=== PATIENT | female | born 1955 | race Caucasian/White ===

== ENCOUNTER 2023-09-24 19:20 | Inpatient (IN) | payer MEDICARE ==
[~2023-09-24] VITALS: Ht 175.3 cm; Wt 41.2 kg
[2023-09-24] MEDS: ONDANSETRON 4MG 2ML VIAL IV ONE (19:39)
[2023-09-24] MEDS: MORPHINE 4 MG/ML 1ML VIAL IV ONE (19:43)
[2023-09-24] MEDS: NS 500 ML IV ONE (19:44)
[2023-09-24] MEDS: ACETAMINOPHEN *IV* 500 MG in IV 1 EA IV ONE (19:44)
[2023-09-24 20:00] LABS: BASO % 0.4 % (0.0-1.0); EOS # 0.1 10^3/uL (0.0-0.5); EOS % 1.2 % (0.0-3.0); HEMATOCRIT 36.8 % (36.0-47.0); HEMOGLOBIN 12.1 g/dl (12.0-15.5); LYMPH # 1.3 10^3/uL (1.5-5.0); LYMPH % 11.5 % (24.0-44.0); MEAN CORPUSCULAR HEMOGLOBIN 31.3 pg (27.0-33.0); MEAN CORPUSCULAR HGB CONC 32.9 g/dl (32.0-36.5); MEAN CORPUSCULAR VOLUME 95.3 fl (80.0-96.0); MONO # 0.6 10^3/uL (0.0-0.8); MONO % 5.4 % (2.0-8.0); NEUTROPHILS # 9.1 10^3/uL (1.5-8.5); PLATELET COUNT, AUTOMATED 192 10^3/uL (150-450); RED BLOOD COUNT 3.86 10^6/uL (4.00-5.40); WHITE BLOOD COUNT 11.3 10^3/uL (4.0-10.0)
[2023-09-24 20:22] LABS: BLOOD UREA NITROGEN 17 MG/DL (9-23); CALCIUM LEVEL 8.3 MG/DL (8.3-10.6); CARBON DIOXIDE LEVEL 30 MMOL/L (20-31); CHLORIDE LEVEL 106 MMOL/L (98-107); CREATININE FOR GFR 0.78 MG/DL (0.55-1.30); GLOMERULAR FILTRATION RATE > 60.0 (>45); GLUCOSE, FASTING 123 MG/DL (74-106); MAGNESIUM LEVEL 2.1 MG/DL (1.8-2.4); POTASSIUM SERUM 3.9 MMOL/L (3.5-5.1); SODIUM LEVEL 140 MMOL/L (136-145)
[2023-09-24] MEDS ORDERED: VENTAER INH (21:04)
[2023-09-24] MEDS ORDERED: PARO10TA3 PO (21:04)
[2023-09-24] MEDS: HYDROMORPHONE HCL 0.5 MG/ 0.5 ML SYRINGE IV ONE (21:04)
[2023-09-24] MEDS ORDERED: METH10CO3 PO (21:04)
[2023-09-24] MEDS ORDERED: HOME MED LIST COMPLETE! XX SCH (21:05)
[2023-09-24] MEDS ORDERED: ALBUTEROL SULFATE 2.5MG/0.5ML INH NEB SOLN NEB PRN (23:00)
[2023-09-25] VITALS (11 sets, daily range): BP systolic 84–128; BP diastolic 50–73; TEMP 97.5–98.4; O2SAT 90–99
[2023-09-25] MEDS: NS 500 ML IV ONE (00:02)
[2023-09-25] MEDS: LR 1,000 ML IV SCH ×2 (00:41→18:06)
[2023-09-25] MEDS: HYDROMORPHONE HCL 0.5 MG/ 0.5 ML SYRINGE IV PRN ×2 (01:03→12:39)
[2023-09-25] MEDS: IPRATROPIUM 0.5MG/ALBUTEROL 2.5MG INH SOL UD 3ML (DUONEB) NEB SCH (02:14)
[2023-09-25] MEDS: NICOTINE 7 MG/24 HR TRANSDERMAL TD SCH (05:55)
[2023-09-25] MEDS: HEPARIN SOD (PORCINE) 5000UNITS/ML 1ML VIAL/SYRINGE SC SCH (06:00)
[2023-09-25] MEDS: PARoxetine 10MG TABLET PO SCH (08:46)
[2023-09-25] MEDS ORDERED: MIDAZOLAM INJ 2MG/2ML VIAL As Ordered ONE (09:31)
[2023-09-25] MEDS ORDERED: KETAMINE HCL 200MG/20ML VIAL As Ordered ONE (09:31)
[2023-09-25] MEDS ORDERED: LIDOCAINE 2% 100MG/5ML SDV (FOR ANES.) As Ordered ONE (09:32)
[2023-09-25] MEDS ORDERED: fentaNYL 100 MCG/2 ML INJECTION As Ordered ONE (09:32)
[2023-09-25] MEDS ORDERED: propofoL 200 MG/20 ML VIAL As Ordered ONE (09:32)
[2023-09-25] MEDS ORDERED: ROCURONIUM BROMIDE 50MG/5ML VIAL As Ordered ONE (10:38)
[2023-09-25] MEDS ORDERED: ONDANSETRON 4MG 2ML VIAL As Ordered ONE (10:43)
[2023-09-25] MEDS: TRANEXAMIC ACID 100 MG/ML 10ML VIAL As Ordered ONE (11:15)
[2023-09-25] MEDS: ceFAZolin 2 GM/D5W 50 ML IV BAG As Ordered ONE (11:17)
[2023-09-25] MEDS ORDERED: SUGAMMADEX SODIUM 500 MG/5 ML VIAL (BRIDION) As Ordered ONE (11:20)
[2023-09-25] MEDS ORDERED: ACETAMINOPHEN 1000MG 100ML IV BAG As Ordered ONE (11:21)
[2023-09-25] MEDS ORDERED: dexmedeTOMIDine (4MCG/ML)200MCG/50ML BTL (PRECEDEX) As Ordered ONE (11:34)
[2023-09-25] MEDS ORDERED: KETOROLAC 60MG 2ML VIAL As Ordered ONE (11:41)
[2023-09-25] MEDS ORDERED: ONDANSETRON 4MG 2ML VIAL IV PRN (12:30)
[2023-09-25] MEDS: METHADONE 10MG TAB PO SCH (13:18)
[2023-09-25] MEDS: ceFAZolin SOD 2 GM in IV 1 EA IV SCH (18:05)
[2023-09-26 06:20] VITALS: BP 109/66; TEMP 97.9; O2SAT 93
[2023-09-26] MEDS: PREVNAR-20 VACCINE 0.5ML SYRINGE IM.IMMUN ONE (09:00)
[2023-09-26] MEDS: FLUZONE HIGH DOSE(65YR UP)QUAD/PF 240MCG/0.7ML SYRINGE IM.IMMUN ONE (09:00)
[2023-09-26 10:43] VITALS: BP 125/73; TEMP 99; O2SAT 94
[2023-09-26] MEDS: PERCOCET 5MG/325MG TAB PO PRN (12:01)
[2023-09-26 13:45] VITALS: BP 127/70; TEMP 98.1; O2SAT 93
[2023-09-26 20:18] VITALS: BP 103/61; TEMP 97.2; O2SAT 91
[2023-09-26] MEDS: NICOTINE 21MG/24HR 1 EA TRANSDERMAL TD SCH (23:20)
[2023-09-27 02:11] VITALS: BP 110/63; TEMP 97; O2SAT 96
[2023-09-27 05:13] VITALS: BP 114/63; TEMP 98.4; O2SAT 94
[2023-09-27] MEDS: ONDANSETRON 4MG 2ML VIAL IV PRN (07:35)
[2023-09-27 11:14] LABS: HEMATOCRIT 33.3 % (36.0-47.0); HEMOGLOBIN 10.8 g/dl (12.0-15.5); MEAN CORPUSCULAR HEMOGLOBIN 31.3 pg (27.0-33.0); MEAN CORPUSCULAR HGB CONC 32.4 g/dl (32.0-36.5); MEAN CORPUSCULAR VOLUME 96.5 fl (80.0-96.0); PLATELET COUNT, AUTOMATED 171 10^3/uL (150-450); RED BLOOD COUNT 3.45 10^6/uL (4.00-5.40); WHITE BLOOD COUNT 7.4 10^3/uL (4.0-10.0)
[2023-09-27 11:47] LABS: BLOOD UREA NITROGEN 14 MG/DL (9-23); CALCIUM LEVEL 8.1 MG/DL (8.3-10.6); CARBON DIOXIDE LEVEL 34 MMOL/L (20-31); CHLORIDE LEVEL 100 MMOL/L (98-107); CREATININE FOR GFR 0.64 MG/DL (0.55-1.30); GLOMERULAR FILTRATION RATE > 60.0 (>45); GLUCOSE, FASTING 100 MG/DL (74-106); POTASSIUM SERUM 4.2 MMOL/L (3.5-5.1); SODIUM LEVEL 135 MMOL/L (136-145)
[2023-09-27 14:00] VITALS: BP 89/52; TEMP 97.9; O2SAT 92
[2023-09-27 14:48] VITALS: BP 98/58
[2023-09-27 19:38] VITALS: BP 88/53; TEMP 97.2; O2SAT 93
[2023-09-27 20:30] VITALS: BP 94/55
[2023-09-28 05:10] VITALS: BP 104/65; TEMP 98.4; O2SAT 93
[2023-09-28] MEDS: oxyCODONE 5MG TAB PO ONE (06:31)
[2023-09-28 07:30] VITALS: BP 112/62; TEMP 98.8; O2SAT 94
[2023-09-28] MEDS ORDERED: NICO21PAT TD (08:14)
== END 2023-09-28 09:10 | DRG 481 ==
LOC: EDBD 19:20 → M ED 19:20 → M ED INP 22:59 → ENRESERVTM 23:16 → ENRESERVDT 23:16 → M MS5PR 09-25 00:20
PROVIDERS: ADMIT Internal Medicine; ATTEND Internal Medicine
PROC: 0QS706Z Reposition Left Upper Femur with Intramedullary Internal Fixation Device, Open Approach (ICD-10-PCS; principal; 2023-09-25 10:00)
DX: S72.142A Displaced intertrochanteric fracture of left femur, initial encounter for closed fracture (principal); R64 Cachexia; J96.11 Chronic respiratory failure with hypoxia; F11.20 Opioid dependence, uncomplicated; J45.909 Unspecified asthma, uncomplicated; F17.210 Nicotine dependence, cigarettes, uncomplicated; Z99.81 Dependence on supplemental oxygen; W18.09XA Striking against other object with subsequent fall, initial encounter; Y92.009 Unspecified place in unspecified non-institutional (private) residence as the place of occurrence of the external cause; Y93.9 Activity, unspecified; Y99.8 Other external cause status; X58.XXXA Exposure to other specified factors, initial encounter; R91.8 Other nonspecific abnormal finding of lung field; Z66 Do not resuscitate; M81.0 Age-related osteoporosis without current pathological fracture; J44.9 Chronic obstructive pulmonary disease, unspecified

== ENCOUNTER 2023-09-28 07:57 | Inpatient (IN) | payer MEDICARE ==
[~2023-09-28] VITALS: Ht 175.3 cm; Wt 45.3 kg
[~2023-09-28 07:57] MED LIST: METH10CO3 PO; PARO10TA3 PO; VENTAER INH
[2023-09-28] MEDS ORDERED: ALBUTEROL 90 MCG/ACT 8GM HFA INHALER INH PRN (08:10)
[2023-09-28] MEDS ORDERED: NICO21PAT TD (08:14)
[2023-09-28 09:34] VITALS: BP 107/55; TEMP 98.5; O2SAT 97
[2023-09-28 10:38] LABS: BLOOD UREA NITROGEN 21 MG/DL (9-23); CARBON DIOXIDE LEVEL 32 MMOL/L (20-31); CHLORIDE LEVEL 107 MMOL/L (98-107); GLOMERULAR FILTRATION RATE > 60.0 (>45); GLUCOSE, FASTING 102 MG/DL (74-106); POTASSIUM SERUM 4.3 MMOL/L (3.5-5.1); SODIUM LEVEL 136 MMOL/L (136-145)
[2023-09-28] MEDS ORDERED: BISACODYL 10MG SUPP PR PRN (10:45)
[2023-09-28] MEDS: MIRALAX *UNIT DOSE* 17GM PACKET PO SCH (11:10)
[2023-09-28] MEDS: ACETAMINOPHEN 500 MG TAB PO SCH (11:10)
[2023-09-28] MEDS: HEPARIN SOD (PORCINE) 5000UNITS/ML 1ML VIAL/SYRINGE SQ SCH (14:00)
[2023-09-28 14:15] VITALS: BP 90/60; TEMP 97.8; O2SAT 93
[2023-09-28] MEDS: LIDOCAINE 5% (LIDODERM) PATCH TD SCH (14:53)
[2023-09-28] MEDS: ENOXAPARIN 30MG/0.3ML SYRINGE (J1650 PER 10MG) SC SCH (14:54)
[2023-09-28 15:17] LABS: TOTAL 25(OH) VITAMIN D 27.8 NG/ML (20.0-100.0)
[2023-09-28] MEDS: GABAPENTIN 100 MG CAP PO SCH (16:27)
[2023-09-28] MEDS: VANICREAM MOISTURIZING SKIN CREAM 113GM TUBE TOP SCH (16:28)
[2023-09-28] MEDS: TIOTROPIUM INHALER/CAPSULE (SPIRIVA) INH SCH (17:03)
[2023-09-28 20:00] VITALS: BP 86/49; TEMP 99.1; O2SAT 92
[2023-09-28] MEDS: RAMELTEON 8 MG TAB (ROZEREM) PO SCH (20:51)
[2023-09-28] MEDS: oxyCODONE 5MG TAB PO PRN (20:51)
[2023-09-28] MEDS: FORMOTEROL FUMARATE 20 MCG/2 ML INHALATION SOLUTION (PERFOROMIST) INH SCH (20:54)
[2023-09-29 06:00] VITALS: BP 88/54; TEMP 99; O2SAT 92
[2023-09-29 06:21] LABS: BASO % 0.3 % (0.0-1.0); EOS % 0.4 % (0.0-3.0); HEMATOCRIT 26.3 % (36.0-47.0); LYMPH # 0.9 10^3/uL (1.5-5.0); MEAN CORPUSCULAR HEMOGLOBIN 31.5 pg (27.0-33.0); MEAN CORPUSCULAR HGB CONC 32.7 g/dl (32.0-36.5); MEAN CORPUSCULAR VOLUME 96.3 fl (80.0-96.0); MONO # 0.7 10^3/uL (0.0-0.8); MONO % 8.5 % (2.0-8.0); NEUTROPHILS # 6.2 10^3/uL (1.5-8.5); NEUTROPHILS % 79.4 % (36.0-66.0); PLATELET COUNT, AUTOMATED 160 10^3/uL (150-450); RED BLOOD COUNT 2.73 10^6/uL (4.00-5.40); WHITE BLOOD COUNT 7.8 10^3/uL (4.0-10.0)
[2023-09-29 06:22] LABS: HEMOGLOBIN 8.6 g/dl (12.0-15.5)
[2023-09-29 06:46] LABS: BLOOD UREA NITROGEN 23 MG/DL (9-23); CALCIUM LEVEL 7.9 MG/DL (8.3-10.6); CARBON DIOXIDE LEVEL 32 MMOL/L (20-31); CHLORIDE LEVEL 107 MMOL/L (98-107); CREATININE FOR GFR 0.61 MG/DL (0.55-1.30); GLOMERULAR FILTRATION RATE > 60.0 (>45); GLUCOSE, FASTING 105 MG/DL (74-106); POTASSIUM SERUM 4.4 MMOL/L (3.5-5.1); SODIUM LEVEL 139 MMOL/L (136-145)
[2023-09-29] MEDS: NICOTINE 21MG/24HR 1 EA TRANSDERMAL TD SCH (07:16)
[2023-09-29] MEDS: METHADONE 10MG TAB PO SCH (07:17)
[2023-09-29] MEDS: PARoxetine 10MG TABLET PO SCH (07:17)
[2023-09-29 14:00] VITALS: BP 95/54; TEMP 99.9; O2SAT 88
[2023-09-29] MEDS: methocarbamoL 500 MG TAB PO PRN (17:06)
[2023-09-29] MEDS: CALCIUM CARBONATE 500 MG CHEW U/D PO SCH (17:06)
[2023-09-29 20:00] VITALS: BP 84/45; TEMP 97.1; O2SAT 95
[2023-09-29 20:02] VITALS: O2SAT 93
[2023-09-30 06:00] VITALS: BP 87/49; TEMP 98.2; O2SAT 97
[2023-09-30] MEDS: VITAMIN D 1,000 INTERNATIONAL UNITS TABLET PO SCH (08:19)
[2023-09-30] MEDS: RIVAROXABAN 10MG TAB (XARELTO) PO SCH (08:19)
[2023-09-30 09:30] VITALS: BP 99/55; O2SAT 90
[2023-09-30] MEDS: LR 1,000 ML IV ONE (10:49)
[2023-09-30 11:22] LABS: BASO % 0.3 % (0.0-1.0); EOS # 0.1 10^3/uL (0.0-0.5); EOS % 1.1 % (0.0-3.0); HEMATOCRIT 25.3 % (36.0-47.0); HEMOGLOBIN 8.3 g/dl (12.0-15.5); LYMPH % 16.1 % (24.0-44.0); MEAN CORPUSCULAR HEMOGLOBIN 31.4 pg (27.0-33.0); MEAN CORPUSCULAR HGB CONC 32.8 g/dl (32.0-36.5); MEAN CORPUSCULAR VOLUME 95.8 fl (80.0-96.0); MONO # 0.6 10^3/uL (0.0-0.8); MONO % 9.3 % (2.0-8.0); NEUTROPHILS # 4.6 10^3/uL (1.5-8.5); PLATELET COUNT, AUTOMATED 154 10^3/uL (150-450); RED BLOOD COUNT 2.64 10^6/uL (4.00-5.40); WHITE BLOOD COUNT 6.3 10^3/uL (4.0-10.0)
[2023-09-30 11:51] LABS: BLOOD UREA NITROGEN 23 MG/DL (9-23); CALCIUM LEVEL 7.8 MG/DL (8.3-10.6); CARBON DIOXIDE LEVEL 34 MMOL/L (20-31); CHLORIDE LEVEL 107 MMOL/L (98-107); CREATININE FOR GFR 0.59 MG/DL (0.55-1.30); GLOMERULAR FILTRATION RATE > 60.0 (>45); GLUCOSE, FASTING 105 MG/DL (74-106); MAGNESIUM LEVEL 1.7 MG/DL (1.8-2.4); POTASSIUM SERUM 4.1 MMOL/L (3.5-5.1); SODIUM LEVEL 142 MMOL/L (136-145)
[2023-09-30] MEDS ORDERED: ISOVUE-370 76% 100ML VIAL As Ordered ONE (12:26)
[2023-09-30 13:30] VITALS: BP 105/55; TEMP 97.6; O2SAT 92
[2023-09-30 13:45] VITALS: BP 87/53; TEMP 97.9; O2SAT 95
[2023-09-30 14:45] VITALS: BP 95/53; TEMP 97.6; O2SAT 97
[2023-09-30] MEDS: PREVNAR-20 VACCINE 0.5ML SYRINGE IM.IMMUN ONE (15:08)
[2023-09-30] MEDS: FLUZONE HIGH DOSE(65YR UP)QUAD/PF 240MCG/0.7ML SYRINGE IM.IMMUN ONE (15:09)
[2023-09-30 20:00] VITALS: BP 98/50; TEMP 98.2; O2SAT 93
[2023-10-01 06:00] VITALS: BP 94/52; TEMP 98.6; O2SAT 96
[2023-10-01 07:48] LABS: HEMATOCRIT 31.6 % (36.0-47.0); MEAN CORPUSCULAR HEMOGLOBIN 31.4 pg (27.0-33.0); MEAN CORPUSCULAR HGB CONC 32.9 g/dl (32.0-36.5); MEAN CORPUSCULAR VOLUME 95.5 fl (80.0-96.0); PLATELET COUNT, AUTOMATED 213 10^3/uL (150-450); RED BLOOD COUNT 3.31 10^6/uL (4.00-5.40); WHITE BLOOD COUNT 7.3 10^3/uL (4.0-10.0)
[2023-10-01 07:51] LABS: HEMOGLOBIN 10.4 g/dl (12.0-15.5)
[2023-10-01 08:13] LABS: BLOOD UREA NITROGEN 23 MG/DL (9-23); CALCIUM LEVEL 8.4 MG/DL (8.3-10.6); CARBON DIOXIDE LEVEL 31 MMOL/L (20-31); CHLORIDE LEVEL 107 MMOL/L (98-107); CREATININE FOR GFR 0.53 MG/DL (0.55-1.30); GLOMERULAR FILTRATION RATE > 60.0 (>45); GLUCOSE, FASTING 73 MG/DL (74-106); MAGNESIUM LEVEL 1.9 MG/DL (1.8-2.4); POTASSIUM SERUM 4.5 MMOL/L (3.5-5.1); SODIUM LEVEL 140 MMOL/L (136-145)
[2023-10-01 14:00] VITALS: BP 90/54; TEMP 97.2; O2SAT 92
[2023-10-01] MEDS: MIDODRINE 5 MG TAB PO SCH (15:08)
[2023-10-01] MEDS: GABAPENTIN 300 MG CAP PO SCH (19:49)
[2023-10-01 20:00] VITALS: BP 103/57; TEMP 97.8; O2SAT 96
[2023-10-02 06:00] VITALS: BP 85/51; TEMP 97.2; O2SAT 97
[2023-10-02 14:00] VITALS: BP 99/51; TEMP 97; O2SAT 97
[2023-10-02 20:00] VITALS: BP 104/52; TEMP 97.9; O2SAT 97
[2023-10-03 06:00] VITALS: BP 96/51; TEMP 98.1; O2SAT 96
[2023-10-03 14:00] VITALS: BP 91/54; TEMP 96.8; O2SAT 92
[2023-10-03 20:00] VITALS: BP 97/56; TEMP 98.1; O2SAT 94
[2023-10-04 06:00] VITALS: BP 102/52; TEMP 97.5; O2SAT 98
[2023-10-04 06:57] LABS: HEMATOCRIT 29.9 % (36.0-47.0); HEMOGLOBIN 9.6 g/dl (12.0-15.5); MEAN CORPUSCULAR HEMOGLOBIN 30.7 pg (27.0-33.0); MEAN CORPUSCULAR HGB CONC 32.1 g/dl (32.0-36.5); MEAN CORPUSCULAR VOLUME 95.5 fl (80.0-96.0); PLATELET COUNT, AUTOMATED 262 10^3/uL (150-450); RED BLOOD COUNT 3.13 10^6/uL (4.00-5.40); WHITE BLOOD COUNT 4.5 10^3/uL (4.0-10.0)
[2023-10-04 14:00] VITALS: BP 89/51; TEMP 98.2; O2SAT 98
[2023-10-04 20:00] VITALS: BP 91/52; TEMP 97.6; O2SAT 96
[2023-10-05 06:00] VITALS: BP 96/52; TEMP 98.2; O2SAT 96
[2023-10-05 13:45] VITALS: BP 88/50; TEMP 97.9; O2SAT 94
[2023-10-05] MEDS: GABAPENTIN 400MG CAP PO SCH (16:01)
[2023-10-05 20:00] VITALS: BP 91/52; TEMP 98.1; O2SAT 94
[2023-10-06 06:48] VITALS: BP 91/53; TEMP 97.8; O2SAT 94
[2023-10-06 07:08] LABS: BLOOD UREA NITROGEN 26 MG/DL (9-23); CALCIUM LEVEL 7.6 MG/DL (8.3-10.6); CARBON DIOXIDE LEVEL 31 MMOL/L (20-31); CHLORIDE LEVEL 106 MMOL/L (98-107); CREATININE FOR GFR 0.51 MG/DL (0.55-1.30); GLOMERULAR FILTRATION RATE > 60.0 (>45); GLUCOSE, FASTING 76 MG/DL (74-106); POTASSIUM SERUM 4.5 MMOL/L (3.5-5.1); SODIUM LEVEL 139 MMOL/L (136-145)
[2023-10-06 09:03] VITALS: O2SAT 90
[2023-10-06] MEDS: methocarbamoL 500 MG TAB PO SCH (10:21)
[2023-10-06 14:00] VITALS: BP 105/57; TEMP 97; O2SAT 90
[2023-10-06 20:08] VITALS: BP 96/50; TEMP 98.4; O2SAT 90
[2023-10-06] MEDS: MIRTAZAPINE 7.5MG PER 1/2 TABLET PO SCH (20:52)
[2023-10-07 06:00] VITALS: BP 98/56; TEMP 98.2; O2SAT 91
[2023-10-07 06:54] LABS: HEMATOCRIT 28.9 % (36.0-47.0); HEMOGLOBIN 9.3 g/dl (12.0-15.5); MEAN CORPUSCULAR HEMOGLOBIN 30.5 pg (27.0-33.0); MEAN CORPUSCULAR HGB CONC 32.2 g/dl (32.0-36.5); MEAN CORPUSCULAR VOLUME 94.8 fl (80.0-96.0); PLATELET COUNT, AUTOMATED 268 10^3/uL (150-450); RED BLOOD COUNT 3.05 10^6/uL (4.00-5.40); WHITE BLOOD COUNT 5.7 10^3/uL (4.0-10.0)
[2023-10-07] MEDS: methocarbamoL 500 MG TAB PO SCH (09:44)
[2023-10-07] MEDS: MIDODRINE 5 MG TAB PO SCH (09:44)
[2023-10-07] MEDS: oxyCODONE 5MG TAB PO PRN (09:46)
[2023-10-07 14:00] VITALS: BP 82/45; TEMP 98; O2SAT 92
[2023-10-07 17:08] VITALS: BP 91/53; O2SAT 88
[2023-10-07] MEDS: NICOTINE 14 MG/24 HR TRANSDERMAL TD SCH (17:30)
[2023-10-07 19:45] VITALS: BP 112/52; TEMP 97.5; O2SAT 92
[2023-10-08 06:00] VITALS: BP 92/51; TEMP 98; O2SAT 94
[2023-10-08 09:03] LABS: HEMATOCRIT 30.5 % (36.0-47.0); HEMOGLOBIN 9.8 g/dl (12.0-15.5); MEAN CORPUSCULAR HEMOGLOBIN 30.4 pg (27.0-33.0); MEAN CORPUSCULAR HGB CONC 32.1 g/dl (32.0-36.5); MEAN CORPUSCULAR VOLUME 94.7 fl (80.0-96.0); PLATELET COUNT, AUTOMATED 304 10^3/uL (150-450); RED BLOOD COUNT 3.22 10^6/uL (4.00-5.40); WHITE BLOOD COUNT 6.4 10^3/uL (4.0-10.0)
[2023-10-08 14:00] VITALS: BP 94/53; TEMP 97.7; O2SAT 95
[2023-10-08 20:00] VITALS: BP 95/52; TEMP 98.3; O2SAT 91
[2023-10-09 06:00] VITALS: BP 88/50; TEMP 98; O2SAT 96
[2023-10-09 14:00] VITALS: BP 93/44; TEMP 98; O2SAT 93
[2023-10-09 20:00] VITALS: BP 88/53; TEMP 98.1; O2SAT 90
[2023-10-10 06:00] VITALS: BP 97/50; TEMP 97.6; O2SAT 89
[2023-10-10 06:19] LABS: HEMATOCRIT 28.8 % (36.0-47.0); HEMOGLOBIN 9.1 g/dl (12.0-15.5); MEAN CORPUSCULAR HEMOGLOBIN 29.7 pg (27.0-33.0); MEAN CORPUSCULAR HGB CONC 31.6 g/dl (32.0-36.5); MEAN CORPUSCULAR VOLUME 94.1 fl (80.0-96.0); PLATELET COUNT, AUTOMATED 291 10^3/uL (150-450); RED BLOOD COUNT 3.06 10^6/uL (4.00-5.40); WHITE BLOOD COUNT 5.5 10^3/uL (4.0-10.0)
[2023-10-10 14:00] VITALS: BP 108/57; TEMP 97; O2SAT 92
[2023-10-10 20:00] VITALS: BP 106/52; TEMP 97.2; O2SAT 92
[2023-10-11 06:08] VITALS: BP 100/55; TEMP 97.3; O2SAT 91
[2023-10-11] MEDS ORDERED: MIRT-10 PO (11:38)
[2023-10-11] MEDS ORDERED: CALC200T15 PO (11:38)
[2023-10-11] MEDS ORDERED: OXYC-517 PO (11:38)
[2023-10-11] MEDS ORDERED: VITAD1000T PO (11:38)
[2023-10-11] MEDS ORDERED: MIDO5TA PO (11:38)
[2023-10-11] MEDS ORDERED: GABA-284 PO (11:38)
[2023-10-11] MEDS ORDERED: METH-1164 PO (11:38)
[2023-10-11] MEDS ORDERED: ANOR1AER PO (11:38)
== END 2023-10-11 13:15 | disposition home health service (06) | DRG 560 ==
LOC: M PM&R 09:15
PROVIDERS: ADMIT Student in an Organized Health Care Education/Training Program; ATTEND Student in an Organized Health Care Education/Training Program
PROC: 30233N1 Transfusion of Nonautologous Red Blood Cells into Peripheral Vein, Percutaneous Approach (ICD-10-PCS; principal; 2023-09-30)
DX: S72.142D Displaced intertrochanteric fracture of left femur, subsequent encounter for closed fracture with routine healing (principal); J96.11 Chronic respiratory failure with hypoxia; F11.20 Opioid dependence, uncomplicated; R64 Cachexia; E87.1 Hypo-osmolality and hyponatremia; D62 Acute posthemorrhagic anemia; M81.0 Age-related osteoporosis without current pathological fracture; G89.18 Other acute postprocedural pain; F39 Unspecified mood [affective] disorder; J44.9 Chronic obstructive pulmonary disease, unspecified; M41.9 Scoliosis, unspecified; R00.0 Tachycardia, unspecified; M62.838 Other muscle spasm; E55.9 Vitamin D deficiency, unspecified; L93.0 Discoid lupus erythematosus; F41.9 Anxiety disorder, unspecified; F17.200 Nicotine dependence, unspecified, uncomplicated; I95.9 Hypotension, unspecified; Z66 Do not resuscitate; G47.9 Sleep disorder, unspecified; Z74.09 Other reduced mobility; Z74.1 Need for assistance with personal care; Z99.81 Dependence on supplemental oxygen; Z79.899 Other long term (current) drug therapy; Z86.16 Personal history of COVID-19

== ENCOUNTER → 2023-11-03 | Outpatient (CLI) | payer MEDICARE ==
[~2023-11-03] MED LIST changes: +ANOR1AER PO; +CALC200T15 PO; +GABA-284 PO; +METH-1164 PO; +MIDO5TA PO; +MIRT-10 PO; +NICO21PAT TD; +OXYC-517 PO; +VITAD1000T PO
== END ==
LOC: M SOG 07:55
PROVIDERS: ATTEND Physician Assistant
DX: S72.142A Displaced intertrochanteric fracture of left femur, initial encounter for closed fracture (principal); W18.30XA Fall on same level, unspecified, initial encounter; Y92.009 Unspecified place in unspecified non-institutional (private) residence as the place of occurrence of the external cause

== ENCOUNTER → 2023-11-10 | Outpatient (CLI) | payer MEDICARE | LOC: M SOG 11:11 | PROVIDERS: ATTEND Physician Assistant | DX: S72.142A Displaced intertrochanteric fracture of left femur, initial encounter for closed fracture (principal); W18.30XA Fall on same level, unspecified, initial encounter; Y92.009 Unspecified place in unspecified non-institutional (private) residence as the place of occurrence of the external cause ==

== ENCOUNTER 2024-11-09 02:33 | Observation (INO) | payer MEDICARE ==
[~2024-11-09] VITALS: Ht 175.3 cm; Wt 45.2 kg
[2024-11-09] MEDS: ACETAMINOPHEN *IV* 1,000 MG in IV 1 EA IV ONE (05:30)
[2024-11-09 06:08] LABS: HEMATOCRIT 32.6 % (36.0-47.0); HEMOGLOBIN 10.4 g/dl (12.0-15.5); MEAN CORPUSCULAR HEMOGLOBIN 30.3 pg (27.0-33.0); MEAN CORPUSCULAR HGB CONC 31.9 g/dl (32.0-36.5); PLATELET COUNT, AUTOMATED 116 10^3/uL (150-450); RED BLOOD COUNT 3.43 10^6/uL (4.00-5.40); WHITE BLOOD COUNT 9.9 10^3/uL (4.0-10.0)
[2024-11-09 06:53] LABS: CALCIUM LEVEL 7.9 MG/DL (8.3-10.6); CREATININE FOR GFR 0.78 MG/DL (0.55-1.30); GLOMERULAR FILTRATION RATE 82.7 (>45); MAGNESIUM LEVEL 1.9 MG/DL (1.8-2.4); THYROID STIMULATING HORMONE 0.309 uIU/ML (0.55-4.78)
[2024-11-09 07:31] LABS: ATYPICAL LYMPH 1 % (0-5); BASOPHILS 1 % (0-1); LYMPHOCYTES 14 % (16-44); MONOCYTES 4 % (0-5); NEUTROPHILS 78 % (28-66)
[2024-11-09 07:32] LABS: PLATELET ESTIMATE DECREASED (NORMAL)
[2024-11-09] MEDS: NS (Normal Saline) 0.9% 1,000 ML IV ONE (07:40)
[2024-11-09] MEDS: TIOTROPIUM BROM 2.5MCG/ACTUATION 4GM INH IH SCH (08:00)
[2024-11-09 08:22] LABS: ALBUMIN 3.3 G/DL (3.2-5.2); BILIRUBIN,DIRECT 0.1 MG/DL (<0.4); BILIRUBIN,TOTAL 0.4 MG/DL (0.3-1.2); TOTAL PROTEIN 6.5 G/DL (5.7-8.2)
[2024-11-09] MEDS ORDERED: CHOL100013 PO (12:16)
[2024-11-09] MEDS ORDERED: HOME MED LIST COMPLETE! XX SCH (12:20)
[2024-11-09] MEDS: MIDODRINE 5 MG TAB PO SCH (12:54)
[2024-11-09] MEDS: ACETAMINOPHEN 500 MG TAB PO SCH (12:54)
[2024-11-09 13:30] LABS: PERCENT SATURATION 8.3 % (13.2-45.0)
[2024-11-09 13:32] LABS: FERRITIN 294.8 NG/ML (7.3-270.7); FOLATE 19.44 NG/ML (>5.4)
[2024-11-09 14:30] VITALS: BP 92/54; TEMP 98.2; O2SAT 94
[2024-11-09] MEDS: METHADONE 10MG TAB PO SCH (15:11)
[2024-11-09] MEDS: ENOXAPARIN 30MG/0.3ML SYRINGE (J1650 PER 10MG) SC SCH (15:13)
[2024-11-09 16:00] VITALS: BP 105/55; TEMP 97.9; O2SAT 97
[2024-11-09] MEDS: FERRIC CARBOXYMALTOSE INJ 750 MG, VIAL MATE ADAPTER 1 EACH in NS 100 ML IV ONE (17:04)
[2024-11-09] MEDS ORDERED: KETOROLAC 30 MG/ML 1ML VIAL IV PRN (19:50)
[2024-11-09] MEDS: SYMBICORT 160/4.5MCG INHALER 6GM INH SCH (19:53)
[2024-11-09 20:05] VITALS: BP 84/44; TEMP 97.2; O2SAT 94
[2024-11-09] MEDS: ACETAMINOPHEN *IV* 500 MG in IV 1 EA IV ONE (20:36)
[2024-11-09] MEDS: METHOCARBAMOL 1,000 MG/10 ML VIAL IV ONE (20:37)
[2024-11-09] MEDS: LIDOCAINE 5% (LIDODERM) PATCH TD SCH (21:00)
[2024-11-09 23:31] VITALS: BP 84/62
[2024-11-09 23:59] VITALS: BP 82/60; TEMP 96.8; O2SAT 94
[2024-11-10] VITALS (7 sets, daily range): BP systolic 84–136; BP diastolic 46–67; TEMP 97.2–98.4; O2SAT 89–95
[2024-11-10] MEDS: methocarbamoL 750 MG TAB PO PRN (04:16)
[2024-11-10] MEDS: KETOROLAC 30 MG/ML 1ML VIAL IV PRN (04:17)
[2024-11-10 06:34] LABS: BASO % 0.5 % (0.0-1.0); EOS # 0.1 10^3/uL (0.0-0.5); EOS % 2.3 % (0.0-3.0); HEMATOCRIT 27.8 % (36.0-47.0); HEMOGLOBIN 8.9 g/dl (12.0-15.5); LYMPH # 1.1 10^3/uL (1.5-5.0); LYMPH % 19.6 % (24.0-44.0); MEAN CORPUSCULAR HEMOGLOBIN 31.1 pg (27.0-33.0); MEAN CORPUSCULAR VOLUME 97.2 fl (80.0-96.0); MONO # 0.6 10^3/uL (0.0-0.8); MONO % 10.4 % (2.0-8.0); NEUTROPHILS # 3.7 10^3/uL (1.5-8.5); RED BLOOD COUNT 2.86 10^6/uL (4.00-5.40); WHITE BLOOD COUNT 5.6 10^3/uL (4.0-10.0)
[2024-11-10 06:58] LABS: CALCIUM LEVEL 8.1 MG/DL (8.3-10.6); CREATININE FOR GFR 0.74 MG/DL (0.55-1.30); GLOMERULAR FILTRATION RATE 88.1 (>45); MAGNESIUM LEVEL 1.9 MG/DL (1.8-2.4); POTASSIUM SERUM 4.5 MMOL/L (3.5-5.1)
[2024-11-10 07:54] LABS: PLATELET COUNT, AUTOMATED 93 10^3/uL (150-450)
[2024-11-10] MEDS: DOCUSATE SODIUM 100MG CAPSULE PO SCH (09:00)
[2024-11-10] MEDS ORDERED: ENOXAPARIN 40MG/0.4ML SYRINGE (J1650 PER 10MG) SC SCH (09:00)
[2024-11-10] MEDS: methocarbamoL 750 MG TAB PO SCH (10:34)
[2024-11-10] MEDS ORDERED: IPRATROPIUM 0.5MG/ALBUTEROL 2.5MG INH SOL UD 3ML NEB PRN (13:10)
[2024-11-11] VITALS: BP 123/64; TEMP 97.5; O2SAT 91
[2024-11-11 04:00] VITALS: BP 127/60; TEMP 97.2; O2SAT 93
[2024-11-11 07:23] LABS: BASO % 0.3 % (0.0-1.0); EOS # 0.1 10^3/uL (0.0-0.5); HEMATOCRIT 26.3 % (36.0-47.0); HEMOGLOBIN 8.3 g/dl (12.0-15.5); LYMPH # 0.8 10^3/uL (1.5-5.0); LYMPH % 12.8 % (24.0-44.0); MEAN CORPUSCULAR HEMOGLOBIN 30.3 pg (27.0-33.0); MEAN CORPUSCULAR HGB CONC 31.6 g/dl (32.0-36.5); MONO # 0.6 10^3/uL (0.0-0.8); MONO % 8.8 % (2.0-8.0); NEUTROPHILS # 4.8 10^3/uL (1.5-8.5); NEUTROPHILS % 75.8 % (36.0-66.0); RED BLOOD COUNT 2.74 10^6/uL (4.00-5.40); WHITE BLOOD COUNT 6.4 10^3/uL (4.0-10.0)
[2024-11-11 07:26] LABS: PLATELET COUNT, AUTOMATED 99 10^3/uL (150-450)
[2024-11-11] MEDS: ONDANSETRON 4MG ORAL DISINTEGRATING TAB PO PRN (15:31)
[2024-11-11 19:12] VITALS: O2SAT 94
[2024-11-12 04:08] VITALS: BP 148/77; TEMP 98.4; O2SAT 94
[2024-11-12] MEDS: KETOROLAC 30 MG/ML 1ML VIAL IV ONE (10:54)
[2024-11-12] MEDS: methocarbamoL 750 MG TAB PO PRN (21:30)
[2024-11-13 04:51] VITALS: BP 140/75; TEMP 97.9; O2SAT 91
[2024-11-13 07:00] VITALS: O2SAT 96
[2024-11-13 08:24] VITALS: BP 137/76
[2024-11-13 13:39] LABS: HEMATOCRIT 30.7 % (36.0-47.0); HEMOGLOBIN 9.7 g/dl (12.0-15.5); MEAN CORPUSCULAR HEMOGLOBIN 30.7 pg (27.0-33.0); MEAN CORPUSCULAR HGB CONC 31.6 g/dl (32.0-36.5); MEAN CORPUSCULAR VOLUME 97.2 fl (80.0-96.0); PLATELET COUNT, AUTOMATED 162 10^3/uL (150-450); RED BLOOD COUNT 3.16 10^6/uL (4.00-5.40); WHITE BLOOD COUNT 9.2 10^3/uL (4.0-10.0)
[2024-11-13] MEDS: METOPROLOL SUCC *XL* 25MG TAB (TopROL *XL*) PO SCH (13:43)
[2024-11-13 14:41] LABS: LYMPHOCYTES 16 % (16-44); MONOCYTES 4 % (0-5); NEUTROPHILS 78 % (28-66); PLATELET ESTIMATE NORMAL (NORMAL)
[2024-11-13] MEDS: MIDODRINE 5 MG TAB PO SCH (16:00)
[2024-11-13 17:20] VITALS: BP 129/74
[2024-11-13 20:21] VITALS: BP 104/58; TEMP 98.8; O2SAT 91
[2024-11-13] MEDS: APIXABAN 5 MG TAB (ELIQUIS) PO SCH (20:36)
[2024-11-13] MEDS: RAMELTEON 8 MG TAB (ROZEREM) PO PRN (22:54)
[2024-11-14 00:03] VITALS: BP 129/76; TEMP 97.3; O2SAT 99
[2024-11-14 04:58] VITALS: BP 113/68; TEMP 97.7; O2SAT 99
[2024-11-14 08:25] VITALS: BP 95/56
[2024-11-14 11:49] VITALS: BP 96/57
[2024-11-14 16:00] VITALS: BP 113/71
[2024-11-14 20:15] VITALS: BP 128/77; TEMP 97.6; O2SAT 94
[2024-11-15 00:30] VITALS: BP_SYST 147; BP_SYST 164; BP_DIAS 83; BP_DIAS 86; TEMP 98.8; O2SAT 94
[2024-11-15 04:30] VITALS: BP 119/64; TEMP 98.8; O2SAT 90
[2024-11-15 07:10] VITALS: O2SAT 92
[2024-11-16 04:00] VITALS: BP 126/86; TEMP 97.9; O2SAT 93
[2024-11-16 06:17] LABS: HEMATOCRIT 26.5 % (36.0-47.0); HEMOGLOBIN 8.4 g/dl (12.0-15.5); MEAN CORPUSCULAR HEMOGLOBIN 30.8 pg (27.0-33.0); MEAN CORPUSCULAR HGB CONC 31.7 g/dl (32.0-36.5); MEAN CORPUSCULAR VOLUME 97.1 fl (80.0-96.0); PLATELET COUNT, AUTOMATED 198 10^3/uL (150-450); RED BLOOD COUNT 2.73 10^6/uL (4.00-5.40); WHITE BLOOD COUNT 4.8 10^3/uL (4.0-10.0)
[2024-11-16 06:38] LABS: BLOOD UREA NITROGEN 26 MG/DL (9-23); CALCIUM LEVEL 7.8 MG/DL (8.3-10.6); CARBON DIOXIDE LEVEL 29 MMOL/L (20-31); CHLORIDE LEVEL 105 MMOL/L (98-107); CREATININE FOR GFR 0.58 MG/DL (0.55-1.30); GLOMERULAR FILTRATION RATE > 90.0 (>45); GLUCOSE, FASTING 105 MG/DL (74-106); POTASSIUM SERUM 4.1 MMOL/L (3.5-5.1); SODIUM LEVEL 140 MMOL/L (136-145)
[2024-11-16 08:00] VITALS: BP 114/83; TEMP 97.3; O2SAT 93
[2024-11-16 12:00] VITALS: BP 124/70; TEMP 97; O2SAT 98
[2024-11-16 19:07] VITALS: O2SAT 92
[2024-11-16 20:00] VITALS: BP 126/59; TEMP 97.2; O2SAT 94
[2024-11-17] VITALS: TEMP 97; O2SAT 93
[2024-11-17 05:35] VITALS: BP 90/40; TEMP 97; O2SAT 92
[2024-11-17 08:24] VITALS: BP 94/50
[2024-11-17 08:25] VITALS: BP 94/50
[2024-11-17 08:30] VITALS: TEMP 98.1; O2SAT 96
[2024-11-17] MEDS ORDERED: MIDO5TA PO (10:13)
[2024-11-17] MEDS ORDERED: SPIR12.9 IH (10:13)
[2024-11-17] MEDS ORDERED: SYMB16INH INH (10:13)
[2024-11-17] MEDS ORDERED: METO1TAB32 PO (10:13)
[2024-11-17] MEDS ORDERED: METH-1165 PO (10:13)
[2024-11-17] MEDS ORDERED: ACET-683 PO (10:13)
[2024-11-17] MEDS ORDERED: ELIQ5TAB PO (10:13)
[2024-11-17] MEDS ORDERED: LIDO5TD TD (10:13)
== END 2024-11-17 11:15 ==
LOC: EDBD 02:33 → M ED 02:33 → M ED INP 02:34 → M MS5PR 14:22
PROVIDERS: ADMIT Internal Medicine; ATTEND Student in an Organized Health Care Education/Training Program
DX: R42 Dizziness and giddiness (principal); I95.89 Other hypotension; S42.292A Other displaced fracture of upper end of left humerus, initial encounter for closed fracture; S32.592D Other specified fracture of left pubis, subsequent encounter for fracture with routine healing; W18.30XA Fall on same level, unspecified, initial encounter; Y92.010 Kitchen of single-family (private) house as the place of occurrence of the external cause; Y93.9 Activity, unspecified; Y99.9 Unspecified external cause status; I48.91 Unspecified atrial fibrillation; Z87.81 Personal history of (healed) traumatic fracture; D50.9 Iron deficiency anemia, unspecified; D69.6 Thrombocytopenia, unspecified; R64 Cachexia; J06.9 Acute upper respiratory infection, unspecified; B97.4 Respiratory syncytial virus as the cause of diseases classified elsewhere; J44.9 Chronic obstructive pulmonary disease, unspecified; J43.9 Emphysema, unspecified; M32.9 Systemic lupus erythematosus, unspecified; F11.21 Opioid dependence, in remission; F41.9 Anxiety disorder, unspecified; F17.211 Nicotine dependence, cigarettes, in remission; F17.290 Nicotine dependence, other tobacco product, uncomplicated; Z99.81 Dependence on supplemental oxygen; Z91.198 Patient's noncompliance with other medical treatment and regimen for other reason; Z85.819 Personal history of malignant neoplasm of unspecified site of lip, oral cavity, and pharynx; Z79.899 Other long term (current) drug therapy; Z79.51 Long term (current) use of inhaled steroids
CPT/HCPCS: 36415; 70450; 71046; 72125; 73030; 73060; 73502; 73700; 80048; 80076; 82607; 82728; 82746; 83550; 83605; 83735; 83880; 84443; 84466; 85025; 85027; 85049; 85055; 87040; 87426; 87486; 87581; 87633; 87798; 93005; 93306; 94640; 96372; 96374; 96375; 96376; 97110; 97116; 97161; 97165; 97530; 97535; 99285; G0378; J0131; J0136; J1439; J1650; J1885; J2800

== ENCOUNTER → 2024-11-29 | Outpatient (CLI) | payer MEDICARE ==
[~2024-11-29] MED LIST changes: +ACET-683 PO; +CHOL100013 PO; +ELIQ5TAB PO; +LIDO5TD TD; +METH-1165 PO; +METO1TAB32 PO; +SPIR12.9 IH; +SYMB16INH INH
== END ==
LOC: M SOG 07:50
PROVIDERS: ATTEND Physician Assistant
DX: S32.509A Unspecified fracture of unspecified pubis, initial encounter for closed fracture (principal); S42.202A Unspecified fracture of upper end of left humerus, initial encounter for closed fracture

== ENCOUNTER → 2024-12-13 | Outpatient (CLI) | payer MEDICARE ==
[~2024-12-13] MED LIST changes: -CHOL100013 PO; +CHOL25TA16 PO
== END ==
LOC: M SOG 06:53
PROVIDERS: ATTEND Physician Assistant
DX: S32.509A Unspecified fracture of unspecified pubis, initial encounter for closed fracture (principal); S42.202A Unspecified fracture of upper end of left humerus, initial encounter for closed fracture; W18.30XA Fall on same level, unspecified, initial encounter; Y92.009 Unspecified place in unspecified non-institutional (private) residence as the place of occurrence of the external cause

== ENCOUNTER → 2025-02-07 | Outpatient (CLI) | payer MEDICARE | LOC: M SOG 07:25 | PROVIDERS: ATTEND Physician Assistant | DX: M80.0B2A Age-related osteoporosis with current pathological fracture, left pelvis, initial encounter for fracture (principal); M80.022A Age-related osteoporosis with current pathological fracture, left humerus, initial encounter for fracture ==